=== PATIENT | male | born 1970 | race American Indian/Alaskan Native ===

== ENCOUNTER 2016-09-30 03:12 | Emergency (ER) | payer OTHER ==
--- NOTE | 2016-09-30 05:28 | Emergency Department Report ---
ED CPR HPI - General Chief Complaint: Cardiac Arrest/CPR Stated Complaint: CARDIAC ARREST Time Seen by Provider: 09/30/16 03:34 Source: EMS (verbal report received from EMS.ems notes not available at time of chart dictation) Mode of arrival: Stretcher Limitations: Physical Limitation - History of Present Illness Initial Comments: This is a 46-year-old male. He is previously unknown to me. He is brought to the hospital by EMS as a cardiac arrest. As per verbal report from EMS, patient 's initial presenting rhythm was asystole. He was intubated in the field. CPR was initiated. The left lower extremity intraosseous line was started. Patient received medications as per standard ACLS protocol. EMS estimates at least 15-20 mins of pulselessness prior to arrival to the department. Upon arrival to the ER, the patient is pulseless, intubated, pupils are fixed and dilated, and he is receiving mechanical chest compressions. Fingerstick is greater than 500. He received standard ACLS medications, chest compressions, interventions. On multiple pulse checks he did not regain pulses. Given the prolonged downtime, lack of pulses, lack of pupillary activity, resuscitation efforts were terminated. MD Complaint: stopped breathing Place: home Initial Findings in the Field: no pulse, PEA ROSC in the Field: No Associated Injuries: No Treatments Prior to Arrival: intubation, chest compressions, epinephrine mgs # ED Review of Systems ROS: Stated complaint: CARDIAC ARREST Other details as noted in HPI Comment: Unobtainable due to pts medical conditions Constitutional: see HPI Eyes: as per HPI ENT: as per HPI Respiratory: see HPI Cardiovascular: as per HPI Endocrine: see HPI Gastrointestinal: as per HPI Genitourinary: as per HPI Musculoskeletal: as per HPI Skin: as per HPI Neurological: as per HPI Psychiatric: as per HPI Hematological/Lymphatic: as per HPI ED Past Medical Hx - Past Medical History Previous Medical History?: Yes Hx Hypertension: Yes Hx Diabetes: Yes ED Physical Exam - General Limitations: Altered Mental Status, Physical Limitation General appearance: other (and debated, GCS of 3) - Eye Eye exam: Present: other (pupils are fixed and dilated. They do not react to light.) - ENT ENT exam: Present: other (endotracheal tube is noted in the oropharynx) - Neck Neck exam: Present: normal inspection - Respiratory Respiratory exam: Present: other (breath sounds are heard with bag valve mask ventilations applied. Otherwise, no breath sounds are appreciated.) - Cardiovascular Cardiovascular Exam: Present: other (patient is pulseless) - GI/Abdominal GI/Abdominal exam: Present: soft - exam: Present: normal inspection - Extremities Exam Extremities exam: Present: normal inspection, other (left lower extremity intraosseous IV as noted) - Back Exam Back exam: Present: normal inspection - Neurological Exam Neurological exam: Present: other (nonverbal, GCS of 3) - Psychiatric Psychiatric exam: Present: other (nonverbal) - Skin Skin exam: Present: dry Critical care attestation.: If time is entered above; I have spent that time in minutes in the direct care of this critically ill patient, excluding procedure time. ED Disposition Clinical Impression: Cardiac arrest Disposition: Is pt being admited?: No Does the pt Need Aspirin: No Condition: Undetermined Referrals: PRIMARY CARE, [Primary Care Provider] - 3-5 Days
== END 2016-09-30 07:30 ==
LOC: EDBD → ED 03:12
DX: I46.9 Cardiac arrest, cause unspecified (principal); I10 Essential (primary) hypertension; E11.9 Type 2 diabetes mellitus without complications